=== PATIENT | female | born 1985 | race Caucasian/White ===

== ENCOUNTER 2017-05-25 06:57 | Inpatient (IN) | payer OTHER ==
[2017-05-25] VITALS (16 sets, daily range): BP systolic 110–144; BP diastolic 56–73
[~2017-05-25 06:57] MED LIST: Feosol PO; Motrin PO; NATALCARE RX1 TABLE1 PO; PRENATAL VITAM1 EAC3 PO; Percocet 5/325,Endoc PO
[2017-05-25 09:44] LABS: EOSINOPHIL COUNT 0.2 K/uL (0-0.3); HEMATOCRIT 32.8 % (36.0-46.0); IMMATURE GRANULOCYTE (%) 0.8 % (0.0-0.7); IMMATURE GRANULOCYTE COUNT 0.1 K/uL; MCH 27.5 PG (29.0-34.0); MCV 85.9 FL (83-99); MEAN PLAT.VOLUME 11.2 uM^3 (9.5-12.4); MONOCYTE (%) 5.8 % (3-12); MONOCYTE COUNT 0.6 K/uL (0-0.8); NEUTROPHIL (%) 72.8 % (45-76); PLATELET COUNT 152 K/uL (156-360); RBC DIS.WIDTH-CV 13.9 % (11.8-14.6); RED BLOOD COUNT 3.82 M/uL (3.80-5.20)
[2017-05-25] MEDS ORDERED: Motrin PO (23:57)
[2017-05-26] VITALS (8 sets, daily range): BP systolic 115–129; BP diastolic 58–77
[2017-05-27 07:34] VITALS: BP 124/75
[2017-05-27 14:30] VITALS: BP 120/67
== END 2017-05-27 18:12 | disposition home or self-care (01) | DRG 775 ==
LOC: LDRP-OP 06:57 → 2WEST 06:58 → LDRP-OP 07:55 → 2WEST 23:26 → LDRP-OP 06-29 11:04
PROVIDERS: Nurse Practitioner
DX: O99.824 Streptococcus B carrier state complicating childbirth (principal); O69.82X0 Labor and delivery complicated by other cord entanglement, without compression, not applicable or unspecified; O26.893 Other specified pregnancy related conditions, third trimester; L29.8 Other pruritus; O9A.22 Injury, poisoning and certain other consequences of external causes complicating childbirth; T36.8X5A Adverse effect of other systemic antibiotics, initial encounter; O99.214 Obesity complicating childbirth; E66.9 Obesity, unspecified; O22.43 Hemorrhoids in pregnancy, third trimester; Z3A.39 39 weeks gestation of pregnancy; Z37.0 Single live birth; Z68.32 Body mass index [BMI] 32.0-32.9, adult; Z88.1 Allergy status to other antibiotic agents
CPT/HCPCS: 85025; C1755; J3370; J7120